=== PATIENT | female | born 1990 | race Caucasian/White ===

== ENCOUNTER 2023-03-27 09:28 | Outpatient (CLI) | payer OTHER | END 2023-03-27 09:40 | disposition home or self-care (01) | LOC: SONOGRAMA 09:28 | PROVIDERS: ATTEND Obstetrics & Gynecology | DX: N83.201 Unspecified ovarian cyst, right side (principal) ==

== ENCOUNTER 2025-06-02 19:06 | Emergency (ER) | payer OTHER ==
[~2025-06-02] VITALS: Ht 160 cm; Wt 54.4 kg
[2025-06-02] MEDS ORDERED: 0.9 % SODIUM CHLORIDE 1,000 ML IV STA (20:28)
[2025-06-02] MEDS ORDERED: DIPHENHYDRAMINE HCL 50 MG/ML VIAL 1ML IV STA (20:28)
[2025-06-02] MEDS ORDERED: METHYLPREDNISOLONE SOD SUCC 125 MG VIAL IV STA (20:28)
[2025-06-02] MEDS ORDERED: DIPHENHYDRAMINE HCL 50 MG/ML VIAL 1ML ONE (20:33)
[2025-06-02] MEDS ORDERED: METHYLPREDNISOLONE SOD SUCC 40 MG VIAL ONE (20:34)
[2025-06-02 21:24] LABS: BASO % 0.4 % (0.1-1.2); EOS # 0.00 (0.04-0.54); EOS % 0.0 % (0.7-7.0); LYMPH # 1.30 (1.18-3.74); LYMPH % 52.8 % (19.3-53.1); MEAN PLATELET VOLUME 11.50 fl (9.4-12.4); MONO # 0.20 (0.24-0.82); MONO % 8.1 % (4.7-12.5); NEUT # 0.93 (1.56-6.13); NEUT % 37.9 % (34.0-71.1); RED CELL DISTRIBUTION WIDTH 12.1 % (11.6-14.4)
[2025-06-02 22:11] LABS: ALT/SGPT 32.0 U/L (12-78); AST/SGOT 41.0 U/L (15-37); BILIRUBIN TOTAL 0.3 mg/dL (0.3-1.2); BUN CREA RATIO 14.0 (7.0-25.0); CREATININE SERUM 0.42 mg/dL (0.55-1.02); GFR 171.69; GLOBULINA 3.0 G/DL (2.4-3.5); GLUCOSE FASTING 102.0 mg/dL (65-100); OSMOLALITY SERUM 281.0 MOSM/KG (275-295)
[2025-06-02 23:13] LABS: URINE APPEARANCE Cloudy; URINE BILIRRUBIN Negative (NEGATIVE); URINE BLOOD Large; URINE COLOR Dark Yellow; URINE GLUCOSE Negative (NEGATIVE); URINE LEUKOCYTE Trace; URINE NITRATE Negative; URINE PROTEIN 30 (NEGATIVE); URINE UROBILINOGEN 1.0 E.U./dl
[2025-06-02 23:18] LABS: URINE BACTERIA 5082.0 uL (0.0-1933); URINE EPITHELIAL CELLS 118.7 uL (0.0-38.8); URINE RBC 46.4 uL (0.0-20.8); URINE WBC 42.0 uL (0.0-23.2)
[2025-06-02 23:41] LABS: URINE CAST 0.58 uL (0.0-1.40); URINE KETONE 40 (NEGATIVE)
[2025-06-03] MEDS ORDERED: CEFTRIAXONE SODIUM 1,000 MG VIAL IM STA (00:01)
[2025-06-03] MEDS ORDERED: CIPRO500 MG PO (00:07)
[2025-06-03] MEDS ORDERED: CEFTRIAXONE SODIUM 1,000 MG VIAL ONE (00:14)
== END 2025-06-03 00:38 | disposition home or self-care (01) ==
LOC: ER 19:06
PROVIDERS: Physician Assistant Medical
DX: A90 Dengue fever [classical dengue] (principal); D72.818 Other decreased white blood cell count; N39.0 Urinary tract infection, site not specified; D69.6 Thrombocytopenia, unspecified